=== PATIENT | female | born 2000 | race African-American/Black ===

== ENCOUNTER 2021-05-26 06:52 | Outpatient (RCR) | payer SELFPAY | END 2021-08-15 09:27 | disposition home or self-care (01) | LOC: ANHDMC 06:52 | PROVIDERS: Visit Provider Nurse Practitioner Family | DX: E66.9 Obesity, unspecified (principal) | CPT/HCPCS: 99199 ==

== ENCOUNTER 2021-12-01 15:33 | Emergency (ER) | payer OTHER, SELFPAY ==
[2021-12-01 15:44] VITALS: BP 139/77; PULSE 75; RESP 16; TEMP 36.9; O2SAT 100
--- NOTE | 2021-12-01 16:16 | ED.EAR ---
HPI - Ear Problem General Chief complaint: Ear Stated complaint: Ear Pain Time Seen by Provider: 12/01/21 16:16 Source: patient and RN notes reviewed Mode of arrival: ambulatory Limitations: no limitations History of Present Illness HPI Narrative: 21-year-old female presents to the [facility] with complaints of bilateral ear pain with decreased hearing in the right ear. Patient states that she used some type of eardrops and she lost her hearing. States symptoms started 2 to 3 days ago Related Data Allergies Allergy/AdvReac Type Severity Reaction Status Date / Time No Known Allergies Allergy Verified 12/01/21 16:22 Review of Systems Review of Systems: All systems reviewed & are unremarkable except as noted in HPI and below Constitutional: Constitutional: Reports no additional constitutional complaints, Denies chills and Denies fever(s) Eyes: Eyes: Reports no additional eye complaints ENT: Reports as per HPI Cardiovascular: Cardiovascular: Reports no additional cardiovascular complaints Respiratory: Respiratory: Reports no additional respiratory complaints Gastrointestinal: Gastrointestinal: Reports no additional gastrointestinal complaints Musculoskeletal: Musculoskeletal: Reports no additional musculoskeletal complaints Integumentary/Breasts: Skin/Breast: Reports system reviewed and no additional complaints, except as docu Neurologic: Reports system reviewed and no additional complaints, except as documented Psychiatric: Psychiatric: Reports no additional psychiatric complaints Allergic/Immunologic: Allergic/Immunologic: Reports no additional allergic/immunologic complaints PMFSH Past Medical History Medical History (Updated 12/01/21 @ 20:07 by Taryn Gomes APRN) Patient denies medical problems Surgical History Surgical History (Updated 12/01/21 @ 20:07 by Taryn Gomes APRN) No pertinent past surgical history Comments At the time of my signature, I reviewed and agree with the nursing past medical, surgical, social, and family history. There is no relevant family history pertinent to the patient complaint. Exam Const: General: healthy appearing, no acute distress and alert Nutritional Appearance: well nourished Orientation/consciousness: patient oriented x3 Limitations: no limitations HENMT: Head: normal to inspection Ears: external ears normal, Abnormal EAC present and TM abnormal erythematous bilateral Eyes: General: appearance normal, both eyes and all related structures Pupils: Equal, round and reactive pupils present Neck: Neck: normal visual inspection, no lymphadenopathy and no meningeal signs Chest: Chest palpation & inspection: normal inspection of the chest Resp: Effort & Inspection: normal respiratory effort and no use of accessory muscles Auscultation: clear to auscultation bilaterally, no crackles, no rales, no rhonchi and no wheezes Cardio: Rate: regular rate Rhythm: regular rhythm Back/Spine/Pelvis: Cervical Spine: normal cervical lordosis Thoracic/Lumbar Spine: thoracic and lumbar spine normal to inspection Skin: General skin exam: normal color Rashes: no rashes Wounds: no wounds Neuro: General: patient oriented x3, moves all extremities, no meningeal signs and no focal motor deficits Cranial nerves: Yes Equal, round and reactive pupils present Speech: normal speech Gait exam (Neuro): Normal gait present Extrem: General: normal to inspection, full ROM and capillary refill normal Psych: Appearance: grossly normal and well kempt Mental Status: mental status grossly normal Affect: normal affect Attitude: cooperative Thought content: Yes Normal thought content present Course Course Emergency Course: Discharge instructions reviewed with patient, as well as provided in writing per nursing staff. The instructions also include specific and strict return/GO TO THE ER as well as f/u information. All questions have been answered, and the patient deny any further
== END 2021-12-01 16:25 | disposition home or self-care (01) ==
PROVIDERS: Emergency Provider Nurse Practitioner
DX: H61.22 Impacted cerumen, left ear (principal); H66.001 Acute suppurative otitis media without spontaneous rupture of ear drum, right ear; E11.9 Type 2 diabetes mellitus without complications
CPT/HCPCS: 69210; 99213; A9270; G0463

== ENCOUNTER 2022-03-07 09:26 | Outpatient (CLI) | payer OTHER, SELFPAY ==
[2022-03-07 10:53] LABS: Beta HCG Quantitative < 2.39 mIU/ML
[2022-03-07 11:17] LABS: HIV 1/2 Ab P24 Ag Result Negative (Negative)
[2022-03-07 12:29] LABS: Hepatitis B Surface Antigen Negative (Negative)
[2022-03-07 12:34] LABS: HAV RESULT Negative (Negative); Hepatitis B Core IgM Result Negative (Negative)
[2022-03-07 12:46] LABS: Hepatitis C Virus Antibody Negative (Negative)
[2022-03-08 11:44] LABS: Rapid Plasma Reagin Non-Reactive (NonReactive)
== END 2022-03-07 09:27 | disposition home or self-care (01) ==
PROVIDERS: Visit Provider Student in an Organized Health Care Education/Training Program
DX: Z11.3 Encounter for screening for infections with a predominantly sexual mode of transmission (principal); N92.6 Irregular menstruation, unspecified
CPT/HCPCS: 36415; 80074; 84702; 86592; 86703; G0432

== ENCOUNTER 2023-07-26 10:07 | Outpatient (CLI) | payer OTHER, SELFPAY ==
[2023-07-26 12:34] LABS: Hepatitis B Surface Antigen Negative (Negative)
[2023-07-26 12:38] LABS: HIV 1/2 Ab P24 Ag Result Negative (Negative)
[2023-07-26 12:39] LABS: HAV RESULT Negative (Negative); Hepatitis B Core IgM Result Negative (Negative)
[2023-07-26 12:52] LABS: Hepatitis C Virus Antibody Negative (Negative)
[2023-07-27 16:20] LABS: Rapid Plasma Reagin Non-Reactive (NonReactive)
== END 2023-07-26 10:08 | disposition home or self-care (01) ==
LOC: ANHLAB 10:08
PROVIDERS: Visit Provider Student in an Organized Health Care Education/Training Program
DX: Z11.3 Encounter for screening for infections with a predominantly sexual mode of transmission (principal)
CPT/HCPCS: 36415; 80074; 86592; 86695; 86696; 86703; G0432